=== PATIENT | female | born 1955 | race Two or more races ===

== ENCOUNTER 2017-09-29 09:15 | Outpatient (CLI) | payer OTHER | END 2017-09-29 15:00 | disposition home or self-care (01) | LOC: TOM 09:15 | DX: R10.10 Upper abdominal pain, unspecified (principal) ==

== ENCOUNTER 2017-12-16 16:37 | Outpatient (CLI) | payer OTHER | END 2017-12-16 16:51 | disposition home or self-care (01) | LOC: RAD 16:37 | DX: M25.561 Pain in right knee (principal); M25.562 Pain in left knee ==

== ENCOUNTER 2018-07-22 14:52 | Outpatient (CLI) | payer OTHER | END 2018-07-22 14:55 | disposition home or self-care (01) | LOC: RAD 14:52 | DX: M05.29 Rheumatoid vasculitis with rheumatoid arthritis of multiple sites (principal); M25.071 Hemarthrosis, right ankle ==

== ENCOUNTER 2018-09-03 14:38 | Outpatient (CLI) | payer OTHER | END 2018-09-03 14:50 | disposition home or self-care (01) | LOC: RAD 14:38 | DX: M25.571 Pain in right ankle and joints of right foot (principal); M79.671 Pain in right foot ==

== ENCOUNTER → 2018-09-08 | Outpatient (CLI) | payer OTHER | END | disposition home or self-care (01) | LOC: MAMO-SONO 13:15 | DX: N60.11 Diffuse cystic mastopathy of right breast (principal); N64.4 Mastodynia; Z12.31 Encounter for screening mammogram for malignant neoplasm of breast; N63.10 Unspecified lump in the right breast, unspecified quadrant; N63.20 Unspecified lump in the left breast, unspecified quadrant ==

== ENCOUNTER → 2018-09-22 | Outpatient (CLI) | payer OTHER | END | disposition home or self-care (01) | LOC: MAMO-SONO 13:15 → SONOGRAMA 13:43 | DX: E04.1 Nontoxic single thyroid nodule (principal) ==

== ENCOUNTER 2020-07-04 15:25 | Outpatient (CLI) | payer OTHER | END 2020-07-04 22:00 | disposition home or self-care (01) | LOC: PPH VACUNA 15:25 | PROVIDERS: ATTEND Emergency Medicine Pediatric Emergency Medicine | DX: Z23 Encounter for immunization (principal) ==

== ENCOUNTER 2020-09-20 16:03 | Outpatient (CLI) | payer OTHER | END 2020-09-20 16:14 | disposition home or self-care (01) | LOC: RAD 16:03 | PROVIDERS: ATTEND Internal Medicine Rheumatology | DX: M15.0 Primary generalized (osteo)arthritis (principal); M05.79 Rheumatoid arthritis with rheumatoid factor of multiple sites without organ or systems involvement ==

== ENCOUNTER → 2020-10-30 | Outpatient (CLI) | payer OTHER | END | disposition home or self-care (01) | LOC: MAMO-SONO 10:15 → SONOGRAMA 10:29 | PROVIDERS: ATTEND Physical Medicine & Rehabilitation | DX: M75.111 Incomplete rotator cuff tear or rupture of right shoulder, not specified as traumatic (principal); M75.112 Incomplete rotator cuff tear or rupture of left shoulder, not specified as traumatic; M54.2 Cervicalgia ==

== ENCOUNTER 2020-11-08 08:11 | Outpatient (CLI) | payer OTHER | END 2020-11-08 08:15 | disposition home or self-care (01) | LOC: NUCLEAR 08:11 | PROVIDERS: ATTEND Internal Medicine Rheumatology | DX: M81.0 Age-related osteoporosis without current pathological fracture (principal); M05.079 Felty's syndrome, unspecified ankle and foot; M87.059 Idiopathic aseptic necrosis of unspecified femur | CPT/HCPCS: 77080; 78315; A9503 ==

== ENCOUNTER 2021-04-01 08:00 | Outpatient (CLI) | payer OTHER | END 2021-04-01 08:30 | disposition home or self-care (01) | LOC: PPH VACUNA 08:00 | PROVIDERS: ATTEND Emergency Medicine Pediatric Emergency Medicine | DX: Z23 Encounter for immunization (principal) ==

== ENCOUNTER 2021-10-15 11:08 | Outpatient (CLI) | payer OTHER | END 2021-10-15 15:51 | disposition home or self-care (01) | LOC: RAD 11:08 | PROVIDERS: ATTEND Orthopaedic Surgery | DX: M25.561 Pain in right knee (principal); M25.562 Pain in left knee ==

== ENCOUNTER 2021-10-15 15:45 | Outpatient (CLI) | payer OTHER | END 2021-10-15 15:50 | disposition home or self-care (01) | LOC: PPH VACUNA 15:45 | PROVIDERS: ATTEND Emergency Medicine Pediatric Emergency Medicine | DX: Z23 Encounter for immunization (principal) ==

== ENCOUNTER 2021-10-29 15:21 | Outpatient (CLI) | payer OTHER | END 2021-10-29 15:32 | disposition home or self-care (01) | LOC: RAD 15:21 | PROVIDERS: ATTEND Orthopaedic Surgery | DX: M25.551 Pain in right hip (principal); M25.552 Pain in left hip ==

== ENCOUNTER 2021-11-18 09:27 | Outpatient (CLI) | payer OTHER ==
[~2021-11-18] VITALS: Ht 165.1 cm; Wt 83.9 kg
== END 2021-11-18 09:28 | disposition home or self-care (01) ==
LOC: LAB 09:27
PROVIDERS: ATTEND Orthopaedic Surgery
DX: Z76.89 Persons encountering health services in other specified circumstances (principal); D64.9 Anemia, unspecified; E88.9 Metabolic disorder, unspecified; D68.8 Other specified coagulation defects; N39.0 Urinary tract infection, site not specified; A49.02 Methicillin resistant Staphylococcus aureus infection, unspecified site; E11.9 Type 2 diabetes mellitus without complications; I10 Essential (primary) hypertension; I49.9 Cardiac arrhythmia, unspecified

== ENCOUNTER 2021-12-03 07:56 | Day surgery (SDC) | payer OTHER ==
[~2021-12-03 07:56] MED LIST: LEVOTHYROXINE25 MCG PO; PREDNISONE PO
== END 2021-12-03 16:45 | disposition home or self-care (01) ==
LOC: CIR.AMB 07:56
PROVIDERS: ATTEND Orthopaedic Surgery
DX: M23.232 Derangement of other medial meniscus due to old tear or injury, left knee (principal); Z20.822 Contact with and (suspected) exposure to COVID-19; M22.42 Chondromalacia patellae, left knee; M12.262 Villonodular synovitis (pigmented), left knee; Z88.0 Allergy status to penicillin; E78.00 Pure hypercholesterolemia, unspecified; E03.9 Hypothyroidism, unspecified; E66.9 Obesity, unspecified

== ENCOUNTER 2022-04-02 14:13 | Outpatient (CLI) | payer OTHER | END 2022-04-02 14:23 | disposition home or self-care (01) | LOC: PPH VACUNA 14:13 | PROVIDERS: ATTEND Emergency Medicine Pediatric Emergency Medicine | DX: Z23 Encounter for immunization (principal) ==

== ENCOUNTER 2022-10-13 12:24 | Outpatient (CLI) | payer OTHER | END 2022-10-13 12:50 | disposition home or self-care (01) | LOC: RAD 12:24 | PROVIDERS: ATTEND Dermatology Procedural Dermatology | DX: J18.8 Other pneumonia, unspecified organism (principal) ==

== ENCOUNTER 2022-11-25 13:39 | Outpatient (CLI) | payer OTHER | END 2022-11-25 13:48 | disposition home or self-care (01) | LOC: SONOGRAMA 13:39 → NUCLEAR 12-17 13:15 | PROVIDERS: ATTEND Internal Medicine | DX: E04.2 Nontoxic multinodular goiter (principal) ==